=== PATIENT | female | born 1960 | race Caucasian/White ===

== ENCOUNTER 2020-05-26 12:56 | Observation (INO) ==
[2020-05-26] MEDS: Nitroglycerin 0.4 MG TAB.SUBL SL PRN ×5 (13:28→17:40)
[2020-05-26 13:54] LABS: Basophils % 0.5 %; Eosinophils # 0.1 K/mcL (0.0-0.6); Eosinophils % 1.6 %; Hematocrit 38.1 % (35.3-44.9); Hemoglobin 12.8 g/dL (11.5-15.4); Immature Granulocytes % 0.5 % (0-4); Lymphocytes # 1.4 K/mcL (0.6-4.6); Lymphocytes % 33.8 %; Mean Corpuscular HGB Conc 33.6 g/dL (31.6-35.5); Mean Corpuscular Hemoglobin 29.9 pg (28.0-33.3); Mean Platelet Volume 9.9 fL (9.4-12.4); Monocytes # 0.4 K/mcL (0.0-1.3); Monocytes % 8.2 %; Neutrophils # 2.4 K/mcL (1.6-8.9); Platelet Count 222 K/mcL (140-400); Red Blood Count 4.28 M/mcL (3.82-4.97); Red Cell Distribution Width 13.2 % (11.5-14.5); Segmented Neutrophils % 55.4 %; White Blood Count 4.3 K/mcL (4.3-11.1)
[2020-05-26 14:06] LABS: INR 0.9; Prothrombin Time 10.7 Seconds (9.4-12.1)
[2020-05-26 14:09] LABS: Activated Partial Thrombo Time 31.2 Seconds (26.0-36.0)
[2020-05-26 14:23] LABS: BUN/Creatinine Ratio 14 (6-26); Blood Urea Nitrogen 14 mg/dL (6-20); Calcium 9.3 mg/dL (8.6-10.3); Carbon Dioxide 24 mEq/L (23-29); Chloride 96 mEq/L (98-107); Glucose 85 mg/dL (70-105); Lipase 19 Units/L (11-82); Osmolality,Calculated 266 (280-300); Potassium 4.7 mEq/L (3.5-5.1); Sodium 128 mEq/L (136-145); Troponin I < 0.03 ng/mL (< 0.04); eGFR For African Americans > 60 (> 60); eGFR For Non-African Americans 57 (> 60)
[2020-05-26] MEDS ORDERED: Isovue-370 500 ML BOTTLE IVP ONE (14:23)
[2020-05-26] MEDS ORDERED: *HR* Promethazine 25 MG/ML VIAL IVP PRN (15:37)
[2020-05-26] MEDS ORDERED: Acetaminophen 325 MG TABLET PO PRN (15:37)
[2020-05-26] MEDS ORDERED: 0.9 % Sodium Chloride 1,000 ML IVC ONE (15:41)
[2020-05-26] MEDS ORDERED: Pantoprazole 40 MG VIAL IVP ONE (17:18)
[2020-05-26] MEDS: Nicotine 21 MG PATCH.TD24 TD SCH (17:25)
[2020-05-26] MEDS ORDERED: GI Cocktail 40 ML EACH PO ONE (18:35)
[2020-05-26] MEDS ORDERED: Levalbuterol Neb 1.25 MG/3 ML IH SCH (22:30)
[2020-05-26] MEDS ORDERED: Morphine Sulfate 2 MG/ML SYRINGE IVP ONE (22:52)
[2020-05-26] MEDS: Levalbuterol Neb 1.25 MG/3 ML IH SCH (22:54)
[2020-05-27 03:17] LABS: Hematocrit 35.9 % (35.3-44.9); Hemoglobin 12.1 g/dL (11.5-15.4); Mean Corpuscular HGB Conc 33.7 g/dL (31.6-35.5); Mean Corpuscular Hemoglobin 29.8 pg (28.0-33.3); Mean Corpuscular Volume 88.4 fL (83.0-100.0); Mean Platelet Volume 9.6 fL (9.4-12.4); Platelet Count 213 K/mcL (140-400); Red Blood Count 4.06 M/mcL (3.82-4.97); Red Cell Distribution Width 13.2 % (11.5-14.5); White Blood Count 4.9 K/mcL (4.3-11.1)
[2020-05-27 03:36] LABS: BUN/Creatinine Ratio 11 (6-26); Blood Urea Nitrogen 11 mg/dL (6-20); Calcium 9.3 mg/dL (8.6-10.3); Carbon Dioxide 24 mEq/L (23-29); Chloride 105 mEq/L (98-107); Glucose 85 mg/dL (70-105); Osmolality,Calculated 279 (280-300); Potassium 4.1 mEq/L (3.5-5.1); Sodium 135 mEq/L (136-145); eGFR For African Americans > 60 (> 60); eGFR For Non-African Americans 57 (> 60)
[2020-05-27] MEDS: Levalbuterol Neb 1.25 MG/3 ML IH SCH ×4 (04:20→16:08)
[2020-05-27] MEDS ORDERED: Acetaminophen IV 1,000 MG/100 ML INFUS..BTL IVPB ONE (06:13)
[2020-05-27] MEDS ORDERED: Regadenoson 0.4 MG/5 ML SYRINGE IVP ONE (06:21)
[2020-05-27] MEDS ORDERED: Aspirin Enteric Coated 81 MG Tablet PO SCH (09:00)
[2020-05-27] MEDS: Nicotine 21 MG PATCH.TD24 TD SCH (09:21)
[2020-05-27 12:07] VITALS: BP 116/58
== END 2020-05-27 16:42 | disposition home or self-care (01) ==
LOC: EMEROOARM 12:56 → 3BNU 12:56 → SUATTDRO 15:43 → 3BNU 16:03
PROVIDERS: ADMIT Internal Medicine; ATTEND Student in an Organized Health Care Education/Training Program